=== PATIENT | female | born 1960 | race Two or more races ===

== ENCOUNTER 2020-07-14 07:44 | Inpatient (IN) | payer MEDICAID ==
[~2020-07-14] VITALS: Ht 162.6 cm; Wt 60.3 kg
[2020-07-14] MEDS ORDERED: DEXAMETHASONE 4MG/ML 1ML VIAL IV ONE (08:45)
[2020-07-14] MEDS ORDERED: SODIUM CHLORIDE 0.9% 250 ML IV ONE (08:45)
[2020-07-14 09:41] LABS: HEMATOCRIT. 38.7 % (36.0-48.0); HEMOGLOBIN. 12.8 g/dL (12.0-16.0); MEAN CORPUSCULAR HEMOGLOBIN 28.4 pg (28.0-32.0); MEAN CORPUSCULAR VOLUME 85.5 fL (81.0-99.0); PLATELET 291 x1000/uL (130-400); RED BLOOD CELL COUNT 4.53 mill/uL (4.2-5.4)
[2020-07-14 09:44] LABS: CHLORIDE 99 mEq/L (98-107)
[2020-07-14 09:51] LABS: CREATINE KINASE 36 IU/L (26-192)
[2020-07-14 09:52] LABS: CLARITY URINE CLEAR (CLEAR); COLOR URINE YELLOW (YELLOW); KETONES URINE TRACE (NEGATIVE); LEUKOCYTE ESTERASE URINE TRACE (NEGATIVE); NITRITE URINE NEGATIVE (NEGATIVE); OCCULT BLOOD URINE 1+ (NEGATIVE); PROTEIN URINE 2+ (NEGATIVE); SPECIFIC GRAVITY URINE 1.024 (1.005-1.030)
[2020-07-14 09:52] LABS: D-DIMER 0.56 mg/L FEU (<0.50); PROTHROMBIN TIME 10.9 sec (9.6-11.0)
[2020-07-14 10:04] LABS: FIBRINOGEN > 900 mg/dL (200-400)
[2020-07-14 10:43] LABS: PLATELET ESTIMATE NORMAL
[2020-07-14] MEDS ORDERED: CEFTRIAXONE 1 G PREMIX 50 ML IV ONE (11:00)
[2020-07-14] MEDS ORDERED: AZITHROMYCIN 500 MG in DEXT 5% WATER 250 ML IV ONE (11:00)
[2020-07-14 11:48] LABS: C REACTIVE PROTEIN QUANT > 190.0 mg/L (0.0-3.0)
[2020-07-14] MEDS ORDERED: MAGNESIUM/ALUMINUM HYDROXIDE/SIMETHICONE 30ML UDC PO PRN (16:45)
[2020-07-14] MEDS ORDERED: ACETAMINOPHEN 650MG/20.3ML UDC GT PRN ×2 (16:45)
[2020-07-14] MEDS ORDERED: NA PHOS,M-B/NA PHOS,DI-BA ENEMA 118ML PR PRN (16:45)
[2020-07-14] MEDS ORDERED: GUAIFENESIN 200MG/10ML SUGAR FREE UDC PO PRN (16:45)
[2020-07-14] MEDS ORDERED: DIPHENHYDRAMINE 50MG/ML VIAL IV PRN (16:45)
[2020-07-14] MEDS ORDERED: ACETAMINOPHEN 325MG TABLET PO PRN ×2 (16:45)
[2020-07-14] MEDS ORDERED: ONDANSETRON HCL 4MG/2ML INJ IV PRN (16:45)
[2020-07-14] MEDS ORDERED: HYDROCODONE/ACETAMINOPHEN 10/325MG TABLET PO PRN (16:45)
[2020-07-14] MEDS ORDERED: HYDROCODONE/APAP 7.5/325MG 1 TAB TABLET PO PRN (16:45)
[2020-07-14] MEDS ORDERED: ACETAMINOPHEN 650MG SUPP PR PRN ×2 (16:45)
[2020-07-14] MEDS ORDERED: CLONIDINE 0.1MG TABLET PO PRN (16:45)
[2020-07-14] MEDS ORDERED: DOCUSATE SODIUM 100MG CAPSULE PO PRN (16:45)
[2020-07-14] MEDS: CEFTRIAXONE 1 G PREMIX 50 ML IV SCH ×2 (16:57→17:10)
[2020-07-14] MEDS: AZITHROMYCIN 500 MG in DEXT 5% WATER 250 ML IV SCH ×2 (16:59→17:11)
[2020-07-14] MEDS: ENOXAPARIN 40MG/0.4ML SYR SUBCUT SCH (18:20)
[2020-07-14] MEDS ORDERED: ERGOCALCIFEROL 50000UNITS CAPSULE PO SCH (18:30)
[2020-07-14] MEDS: ASCORBIC ACID 500 MG TABLET PO SCH (20:57)
[2020-07-15] MEDS: DEXAMETHASONE 10 MG/ML VIAL IV SCH (09:05)
[2020-07-15] MEDS: ASCORBIC ACID 500 MG TABLET PO SCH ×2 (09:05→22:05)
[2020-07-15 09:17] LABS: BASOPHILS % 0.2 % (0.0-2.0); HEMATOCRIT. 36.3 % (36.0-48.0); LYMPHOCYTES % 7.3 % (20.0-50.0); MEAN CORPUSCULAR HEMOGLOBIN 28.2 pg (28.0-32.0); MEAN CORPUSCULAR VOLUME 85.3 fL (81.0-99.0); MEAN PLATELET VOLUME 8.9 fl (7.4-10.4); MONOCYTES % 8.8 % (2.0-8.0); NEUTROPHILS % 83.7 % (40.0-76.0); PLATELET 305 x1000/uL (130-400); RED BLOOD CELL COUNT 4.25 mill/uL (4.2-5.4)
[2020-07-15 09:23] LABS: LDL CHOLESTEROL 120 mg/dL (5-100)
[2020-07-15 09:24] LABS: HDL CHOLESTEROL 32 mg/dL (40-59)
[2020-07-15 09:43] LABS: CHLORIDE 105 mEq/L (98-107)
[2020-07-15 10:36] LABS: BG CARBOXYHEMOGLOBIN 0.3 % (0.5-1.5); BG DEOXYHEMOGLOBIN 15.4 % (0.0-5.0); BG FRACTION INSPIRED OXYGEN 32; BG HCO3 ACT 25.4 mmol/L (22.0-26.0); BG METHEMOGLOBIN 0.2 % (0.0-1.5); BG OXYGEN SATURATION 84.5 % (92.0-98.5); BG OXYHEMOGLOBIN 84.1 % (94.0-97.0); BG PCO2 35.7 mmHg (35.0-45.0); BG TOTAL HEMOGLOBIN 12.7 g/dL (12.0-18.0); BG VENT MODE NASAL CANNULA
[2020-07-15] MEDS ORDERED: CEFTRIAXONE 1,000 MG in DEXTROSE 5% WATER 50 ML IV SCH (11:00)
[2020-07-15 11:10] VITALS: BP 130/87
[2020-07-15] MEDS ORDERED: LISI10TA5 MT (11:52)
[2020-07-15] MEDS ORDERED: AZITHROMYCIN 500 MG in DEXT 5% WATER 250 ML IV SCH (12:00)
[2020-07-15] MEDS: ENOXAPARIN 40MG/0.4ML SYR SUBCUT SCH (17:04)
[2020-07-15 20:00] VITALS: BP 130/76
[2020-07-16] VITALS: BP 124/68
[2020-07-16 07:59] VITALS: BP 125/73
[2020-07-16] MEDS: DEXAMETHASONE 10 MG/ML VIAL IV SCH (08:48)
[2020-07-16] MEDS: ASCORBIC ACID 500 MG TABLET PO SCH ×2 (08:48→21:00)
[2020-07-16 11:37] VITALS: BP 122/70
[2020-07-16] MEDS: CEFTRIAXONE 1,000 MG in DEXTROSE 5% WATER 50 ML IV SCH (13:59)
[2020-07-16] MEDS: AZITHROMYCIN 500 MG in DEXT 5% WATER 250 ML IV SCH (14:44)
[2020-07-16 16:00] VITALS: BP 131/66
[2020-07-16] MEDS: ENOXAPARIN 40MG/0.4ML SYR SUBCUT SCH (17:05)
[2020-07-16 20:00] VITALS: BP 140/80
[2020-07-17] VITALS: BP 125/69
[2020-07-17 04:00] VITALS: BP_SYST 118
[2020-07-17 08:00] VITALS: BP 135/74
[2020-07-17] MEDS: DEXAMETHASONE 4MG/ML 1ML VIAL IV SCH (09:23)
[2020-07-17] MEDS: ASCORBIC ACID 500 MG TABLET PO SCH ×2 (09:23→21:04)
[2020-07-17 12:00] VITALS: BP 117/81
[2020-07-17] MEDS: CEFTRIAXONE 1,000 MG in DEXTROSE 5% WATER 50 ML IV SCH (14:00)
[2020-07-17] MEDS: AZITHROMYCIN 500 MG in DEXT 5% WATER 250 ML IV SCH (15:00)
[2020-07-17 16:00] VITALS: BP 114/66
[2020-07-17] MEDS: ENOXAPARIN 40MG/0.4ML SYR SUBCUT SCH (18:32)
[2020-07-17 20:00] VITALS: BP 111/73
[2020-07-18] VITALS: BP 105/59
[2020-07-18 04:00] VITALS: BP 110/65
[2020-07-18 08:00] VITALS: BP 128/86
[2020-07-18] MEDS: DEXAMETHASONE 4MG/ML 1ML VIAL IV SCH (08:28)
[2020-07-18] MEDS: ASCORBIC ACID 500 MG TABLET PO SCH (08:28)
[2020-07-18] MEDS ORDERED: DEX6 MT (11:13)
[2020-07-18] MEDS ORDERED: AZIT500T3 MT (11:14)
[2020-07-18 12:00] VITALS: BP 130/79
[2020-07-18] MEDS: CEFTRIAXONE 1,000 MG in DEXTROSE 5% WATER 50 ML IV SCH (13:14)
[2020-07-18] MEDS: AZITHROMYCIN 500 MG in DEXT 5% WATER 250 ML IV SCH (14:19)
[2020-07-18 14:54] LABS: BG BASE EXCESS 0.8 mmol/L (-2.0-2.0); BG DEOXYHEMOGLOBIN 9.6 % (0.0-5.0); BG FRACTION INSPIRED OXYGEN 21; BG HCO3 ACT 24.3 mmol/L (22.0-26.0); BG METHEMOGLOBIN 0.2 % (0.0-1.5); BG OXYGEN SATURATION 90.4 % (92.0-98.5); BG OXYHEMOGLOBIN 90.2 % (94.0-97.0); BG PCO2 35.4 mmHg (35.0-45.0); BG PH 7.455 (7.350-7.450); BG PO2 56.6 mmHg (75.0-100.0); BG SAMPLE SITE LEFT BRACHIAL; BG VENT MODE ROOM AIR
[2020-07-18 15:19] VITALS: BP 130/79
[2020-07-18 16:00] VITALS: BP 116/72
== END 2020-07-18 17:35 | disposition home or self-care (01) | DRG 720 ==
LOC: ER 07:57 → 7EST 12:36 → ENRESERV 07-15 10:04
PROVIDERS: ADMIT Family Medicine; ATTEND Family Medicine
DX: A41.89 Other specified sepsis (principal); U07.1 COVID-19; J96.01 Acute respiratory failure with hypoxia; J12.82 Pneumonia due to coronavirus disease 2019; E44.0 Moderate protein-calorie malnutrition; E78.5 Hyperlipidemia, unspecified; E87.1 Hypo-osmolality and hyponatremia; I10 Essential (primary) hypertension; I95.9 Hypotension, unspecified; R73.9 Hyperglycemia, unspecified; Z68.22 Body mass index [BMI] 22.0-22.9, adult; Z87.81 Personal history of (healed) traumatic fracture
CPT/HCPCS: 36415; 36600; 71045; 80053; 80061; 81003; 82375; 82550; 82728; 82805; 83605; 83615; 83880; 84145; 84484; 85025; 85379; 85384; 86140; 93005; 99291; C9803; J0456; J0696; J1100; J1650; J7030; J7060; U0003